=== PATIENT | male | born 1970 | race Caucasian/White ===

== ENCOUNTER 2022-08-11 23:49 | Emergency (ER) | payer BC, MEDICAID ==
[2022-08-12] MEDS ORDERED: Sodium Chloride 0.9% 10 ML Syringe FLUSH PRN (00:31)
[2022-08-12] MEDS ORDERED: Sodium Chloride 0.9% 50 ML IV STA (00:49)
[2022-08-12] MEDS ORDERED: Iopamidol 612 MG/ML 100 ML Bottle IV STA (00:49)
[2022-08-12 00:53] LABS: BASOPHILS ABSOLUTE AUTO 0.06 K/uL (0.00-0.10); BASOPHILS PERCENT AUTO 0.5 % (0.1-1.3); EOSINOPHILS ABSOLUTE AUTO 0.04 K/uL (0.00-0.40); EOSINOPHILS PERCENT AUTO 0.3 % (0.0-5.4); HEMATOCRIT 43.1 % (38.4-49.7); HEMOGLOBIN 14.7 g/dL (12.9-16.9); IMMATURE GRAN ABSOLUTE AUTO 0.22 K/uL (0.00-0.23); IMMATURE GRAN PERCENT AUTO 1.9 % (0.0-0.7); LYMPHOCYTES ABSOLUTE AUTO 1.68 K/uL (0.8-3.3); LYMPHOCYTES PERCENT AUTO 14.6 % (11.4-47.7); MEAN CORPUSCULAR HEMOGLOBIN 30.6 pg (31.6-35.5); MEAN CORPUSCULAR HGB CONC 34.1 g/dL (31.6-35.5); MEAN CORPUSCULAR VOLUME 89.6 fL (81.4-99.0); MONOCYTES ABSOLUTE AUTO 0.53 K/uL (0.20-0.90); MONOCYTES PERCENT AUTO 4.6 % (3.3-12.6); NEUTROPHILS ABSOLUTE AUTO 8.96 K/uL (1.0-7.6); NEUTROPHILS PERCENT AUTO 78.1 % (40.0-78.1); PLATELET COUNT,PLT 305 K/uL (130-375); RED BLOOD CELL COUNT 4.81 M/uL (4.14-5.76); WHITE BLOOD CELL COUNT,WBC 11.5 K/uL (3.2-11.0)
[2022-08-12 01:07] LABS: APPEARANCE,URINE CLOUDY (CLEAR); BILIRUBIN,URINE NEGATIVE (NEGATIVE); COLOR,URINE YELLOW (YELLOW); GLUCOSE,URINE 500 mg/dL (NEGATIVE); KETONES,URINE NEGATIVE (NEGATIVE); LEUKOCYTE ESTERASE,URINE NEGATIVE (NEGATIVE); NITRITE,URINE NEGATIVE (NEGATIVE); OCCULT BLOOD,URINE LARGE (NEGATIVE); PH,URINE 5.5 (5.0-8.0); PROTEIN,URINE 30 mg/dL (NEGATIVE)
[2022-08-12 01:11] LABS: ALANINE AMINOTRANSFERASE,ALT 25 U/L (12-78); ALBUMIN 3.5 g/dL (3.4-5.0); ALKALINE PHOSPHATASE 161 U/L (46-116); ASPARTATE AMNIOTRANSFERASE,AST 16 U/L (15-37); BILIRUBIN TOTAL 0.5 mg/dL (0.2-1.0); BLOOD UREA NITROGEN,BUN 8 mg/dL (7-18); CALCIUM 8.5 mg/dL (8.5-10.1); CARBON DIOXIDE,CO2 24 mmol/L (21-32); CHLORIDE,CL 100 mmol/L (100-108); CREATININE 0.8 mg/dL (0.8-1.3); ESTIMATED GFR 106 mL/min (>60); GLUCOSE RANDOM 217 mg/dL (74-106); SODIUM,NA 135 mmol/L (140-148)
[2022-08-12 01:18] LABS: RBC,URINE >100 (0-5); WBC,URINE 0-5 (0-5)
[2022-08-12 01:18] LABS: INR 1.1; PROTHROMBIN TIME 10.8 sec (9.2-10.6); PTT,PARTIAL THROMBOPLSTIN TIME 26.3 sec (21.8-27.3)
[2022-08-12 01:19] LABS: AMORPHOUS SEDIMENT,URINE NOT SEEN; BACTERIA,URINE FEW; EPITHELIAL CELLS,URINE FEW; MUCUS,URINE NOT SEEN
== END 2022-08-12 02:39 | disposition home or self-care (01) ==
LOC: JP.ED 23:49
DX: N30.11 Interstitial cystitis (chronic) with hematuria (principal); E11.65 Type 2 diabetes mellitus with hyperglycemia; F10.920 Alcohol use, unspecified with intoxication, uncomplicated; E87.6 Hypokalemia; N40.0 Benign prostatic hyperplasia without lower urinary tract symptoms; I10 Essential (primary) hypertension; Z86.73 Personal history of transient ischemic attack (TIA), and cerebral infarction without residual deficits; Z88.0 Allergy status to penicillin; Z79.82 Long term (current) use of aspirin; Z72.0 Tobacco use; Z20.822 Contact with and (suspected) exposure to COVID-19
CPT/HCPCS: 36415; 74177; 80053; 80307; 81001; 82272; 85025; 85610; 85730; 87635; 99284; J3490; Q9967; U0002

== ENCOUNTER 2022-10-14 14:21 | Emergency (ER) | payer MEDICAID ==
[2022-10-14] MEDS: Bacitracin Oint 1 GM U/D Packet TOP ONE (15:15)
== END 2022-10-14 15:32 | disposition home or self-care (01) ==
LOC: JP.ED 14:21
DX: T25.221A Burn of second degree of right foot, initial encounter (principal); E11.9 Type 2 diabetes mellitus without complications; I10 Essential (primary) hypertension; G45.9 Transient cerebral ischemic attack, unspecified; Z88.0 Allergy status to penicillin
CPT/HCPCS: 16020; 99283

== ENCOUNTER 2022-10-28 23:00 | Emergency (ER) | payer MEDICAID ==
[2022-10-29 01:11] LABS: CORONAVIRUS COVID-19 NAA POSITIVE (NEGATIVE)
[2022-10-29 01:12] LABS: STREP A BY PCR NOT DETECTED (NOT DETECT)
== END 2022-10-29 01:25 | disposition home or self-care (01) ==
LOC: JP.ED 23:00
DX: U07.1 COVID-19 (principal); I10 Essential (primary) hypertension; E11.9 Type 2 diabetes mellitus without complications; F17.290 Nicotine dependence, other tobacco product, uncomplicated; Z79.84 Long term (current) use of oral hypoglycemic drugs; Z88.0 Allergy status to penicillin; Z79.899 Other long term (current) drug therapy
CPT/HCPCS: 87651-QW; 99283; U0002